=== PATIENT | female | born 1950 | race Caucasian/White ===

== ENCOUNTER 2016-12-26 05:03 | Inpatient (IN) | payer OTHER ==
--- NOTE | 2016-12-01 11:10 | HISTORY & PHYSICAL EXAMINATION ---
DATE OF ADMISSION: 12/26/2016 PROCEDURE: Left knee replacement. HISTORY OF PRESENT ILLNESS: Shania is a pleasant 66-year-old female who presents for preoperative evaluation prior to her left knee replacement. She has been having pain in this knee for several years now, which has gradually worsened. It has now gotten to the point that it is affecting her daily activities including walking up and down steps. She had a previous left knee arthroscopy, partial meniscectomy in July [address] Trujillo, has had previous cortisone injections as well as taking oral anti-inflammatories without relief. She has tried a course of physical therapy as well. At this point in time, has failed conservative measures and would like to proceed with the left knee replacement. PAST MEDICAL HISTORY: 1. Hypertension. 2. History of atrial flutter. 3. GERD. ALLERGIES: No known drug allergies. CURRENT MEDICATIONS: 1. Klor-Con 20 mEq daily. 2. Losartan/hydrochlorothiazide 100/25 mg daily. 3. Pantoprazole 40 mg daily. 4. Bisoprolol daily. PAST SURGICAL HISTORY: 1. Left knee arthroscopy. 2. Hysterectomy. 3. Appendectomy. 4. Bilateral carpal tunnel surgery. FAMILY HISTORY: Noncontributory. SOCIAL HISTORY: The patient is retired and lives in a 1-story home with her mother. Denies a history of smoking or tobacco use. No alcohol consumption. REVIEW OF SYSTEMS: Otherwise negative. Please see HPI for pertinent positives. PHYSICAL EXAMINATION: GENERAL: Dora 66-year-old female in no acute distress, alert and oriented x3. She is 5 feet tall, weighs 200 pounds. VITAL SIGNS: Blood pressure is 142/78, pulse 76, O2 sat 98%. HEENT: Normocephalic, atraumatic. CARDIAC: Regular rate and rhythm. No murmurs, rubs or gallops appreciated. Resting pulse 76 beats per minute. LUNGS: Clear to auscultation without rales or wheeze bilaterally. ABDOMEN: Soft, nontender. Bowel sounds present. EXTREMITIES: Left lower extremity is neurovascularly intact. Calves are soft and nontender. DP pulse +2. Overall has varus alignment. There is no erythema or warmth. Has mild effusion. Positive crepitation with motion, range of motion is 0/5/115. IMAGING: Reviewed of the left knee shows findings consistent with degenerative joint disease including joint space narrowing, subchondral sclerosis, and peripheral osteophytes noted. IMPRESSION: 1. Left knee degenerative joint disease. 2. Hypertension. 3. Gastroesophageal reflux disease. 4. History of atrial flutter. PLAN: Further care discussed with patient. At this point in time, has failed conservative measures and would like to proceed with a left knee replacement. We will place on aspirin 81 mg p.o. b.i.d. for a month postop and would like to be discharged home with home health physical therapy.
[2016-12-01 11:43] VITALS: BMI 37.0
--- NOTE | 2016-12-01 12:23 | PAT Medication Instructions ---
Service Date Dec 01, 2016. Current Home Medication List Acetaminophen (Tylenol 8 Hour Arthritis), 1,300 MG PO HS Ascorbic Acid (Vitamin C), 1,000 MG PO QPM Aspirin (Aspirin Ec), 81 MG PO QAM Cyanocobalamin (Vitamin B12 500MCG), 1,000 MCG PO QPM Ferrous Gluconate (Iron), 27 MG PO QAM Fish Oil (Byron-3), 1 CAP PO BID Pjodhxohzwn-Ksgpgmxecfc-Qk Cho (Glucosamine Chondroitin &), 1 TAB PO QPM Losartan Potassium & Hydrochlo (Hyzaar), 1 TAB PO QAM Multivitamin (Multivitamin), 1 TAB PO QAM Pantoprazole (Protonix), 40 MG PO NOON Potassium Ext Rel (Klor-Con), 20 MEQ PO QAM Vitamin E (Alph-E), 400 UNITS PO QPM [Bisoprolol], 2.5 MG PO QAM [Calcium], 600 MG PO QPM [Zinc], 50 MG PO QPM Medication Instructions For Your Scheduled Surgery - Hold the following medications 2 weeks prior to surgery: Vitamin E (Alph-E), 400 UNITS PO QPM Fish Oil (Byron-3), 1 CAP PO BID Hqfgamchhng-Azwxcijmexk-Sb Cho (Glucosamine Chondroitin &), 1 TAB PO QPM - Hold the following medications the morning of surgery: Ferrous Gluconate (Iron), 27 MG PO QAM Losartan Potassium & Hydrochlo (Hyzaar), 1 TAB PO QAM Multivitamin (Multivitamin), 1 TAB PO QAM Potassium Ext Rel (Klor-Con), 20 MEQ PO QAM - Take the following medications the morning of surgery with a sip of water OTHERWISE NOTHING TO EAT OR DRINK AFTER MIDNIGHT: [Bisoprolol], 2.5 MG PO QAM Aspirin (Aspirin Ec), 81 MG PO QAM Pantoprazole (Protonix), 40 MG PO NOON - Take the following medications as scheduled the night before surgery: Cyanocobalamin (Vitamin B12 500MCG), 1,000 MCG PO QPM Acetaminophen (Tylenol 8 Hour Arthritis), 1,300 MG PO HS [Calcium], 600 MG PO QPM [Zinc], 50 MG PO QPM Ascorbic Acid (Vitamin C), 1,000 MG PO QPM If you have any questions please call us at [phone] or [phone] or [phone]
[2016-12-01 12:55] LABS: BASO % 0.3 %; BASO ABS # 0.02 K/uL (0-0.2); COMPLETE YES; EOS % 1.8 %; HEMATOCRIT 38.5 % (37-47); IG% 0.2 %; LYMPH % 32.3 %; LYMPH ABS # 1.94 K/uL (1.2-3.4); MEAN CELL VOLUME 89.3 fL (80-100); MEAN CORPUSCULAR HEMOGLOBIN 31.8 pg (25-34); MEAN CORPUSCULAR HGB CONC 35.6 g/dl (32-36); MEAN PLATELET VOLUME 9.8 fL (7.4-10.4); MONO % 9.7 %; NEUT % 55.7 %; PLATELET COUNT 282 K/uL (130-400); RED BLOOD COUNT 4.31 M/uL (4.2-5.4); WHITE BLOOD COUNT 6.01 K/uL (4.8-10.8)
[2016-12-01 13:08] LABS: URINE APPEARANCE CLEAR (CLEAR); URINE BILIRUBIN NEG (NEG); URINE COLOR YELLOW; URINE EPITHELIAL CELL AUTO >30 /lpf (0-5); URINE NITRITE NEG (NEG); URINE PH 5.5 (4.5-7.5); UROBILINOGEN NEG (NEG)
[2016-12-01 13:09] LABS: MANUAL MICROSCOPIC REQUIRED? NO; REVIEW REQ? NO
[2016-12-01 13:13] LABS: PARTIAL THROMBOPLASTIN RATIO 0.9; PROTHROMBIN TIME (PATIENT) 10.4 SECONDS (9.0-12.0)
--- NOTE | 2016-12-01 13:14 | DIAGNOSTIC IMAGING REPORT ---
CHEST PREADMISSION(PA/LAT) CLINICAL HISTORY: Preoperative evaluation. COMPARISON STUDY: No previous studies for comparison. FINDINGS: Lung volumes are normal. There is no pneumothorax or pleural effusion. Cardiac size is normal. Mediastinal contours are normal. There is no evidence of pulmonary edema. No airspace opacities are identified. IMPRESSION: No acute cardiopulmonary findings. Electronically signed by: Ubaldo Silva M.D. 12/01/2016 1:12 PM Dictated Date/Time: 12/01/2016 1:12 PM
[2016-12-01 13:18] LABS: ESTIMATED AVERAGE GLUCOSE 114 mg/dl; HA1C FLAG Normal (Normal)
[2016-12-01 14:25] LABS: BUN/CREATININE RATIO 27.1 (10-20); CALCIUM 9.1 mg/dl (8.5-10.1); CREATININE 0.79 mg/dl (0.60-1.20); POTASSIUM 3.4 mmol/L (3.5-5.1)
[2016-12-26] VITALS (9 sets, daily range): BP systolic 105–166; BP diastolic 62–95; PULSE 74–83; TEMP 36.4–37.4; O2SAT 91–97; Ht 157.5 cm; Wt 92.3 kg
[~2016-12-26] VITALS: Ht 157.5 cm; Wt 92.3 kg
[~2016-12-26 05:03] MED LIST: ACET650T97 PO; ASCO10003 PO; ASPI81TA28 PO; BISOPROLOL PO; CALC-51 PO; CYAN500T13 PO; FERR27TA5 PO; GLUCTAB32 PO; LOSA100T2 PO; MULT-506 PO; OMEG10007 PO; PANT40TA PO; POTA20TA16 PO; VITA400C28 PO; ZINC PO
[2016-12-26] MEDS ORDERED: CeleBREX 200 MG CAP PO SCH (06:00)
[2016-12-26] MEDS ORDERED: ROPIVACAINE 5MG/ML 30 ML 150 MG, BUPIVACAINE/EPINEPHR 0.5% MPF 30 ML, KETOROLAC TROMETH... INFIL SCH ×7 (06:00)
[2016-12-26] MEDS ORDERED: LACTATED RINGER'S 1000ML 1,000 ML IV SCH (06:00)
[2016-12-26] MEDS ORDERED: CEFAZOLIN 2000 MG/60 ML D5W 60 ML IV SCH (06:00)
[2016-12-26] MEDS ORDERED: DEXAMETHASONE 4 MG TAB PO SCH (06:00)
[2016-12-26] MEDS ORDERED: METOCLOPRAMIDE HCL 10 MG TAB PO SCH (06:00)
[2016-12-26] MEDS ORDERED: GABAPENTIN 300 MG CAP PO SCH (06:00)
[2016-12-26] MEDS ORDERED: FAMOTIDINE 20 MG TAB PO SCH (06:00)
[2016-12-26] MEDS ORDERED: ACETAMINOPHEN 500 MG TAB PO SCH (06:00)
[2016-12-26] MEDS ORDERED: LACTATED RINGER'S 1000ML IV SCH (06:00)
[2016-12-26] MEDS ORDERED: LIDOCAINE HCL 2% 2 ML VIAL (20MG/ML) ONE (06:29)
[2016-12-26] MEDS ORDERED: PROPOFOL IV EMULSION 10 MG/ML 20 ML VIAL IV ONE (06:29)
[2016-12-26] MEDS ORDERED: MIDAZOLAM HCL 1 MG/ML 2ML VIAL ONE (06:29)
[2016-12-26] MEDS ORDERED: FENTANYL CITRATE INJ 50 MCG/1 ML 2 ML VIAL ONE (06:29)
[2016-12-26] MEDS ORDERED: ONDANSETRON INJ 2 MG/ML 2 ML VIAL ONE (06:29)
[2016-12-26] MEDS: TRANEXAMIC ACID INJ 1,000 MG in SODIUM CHLORIDE 0.9% 100ML 100 ML IV SCH ×2 (06:30→07:03)
[2016-12-26] MEDS ORDERED: BUPIVACAINE 0.5 % 5 MG/1 ML PF 10ML VIAL ONE (06:32)
[2016-12-26] MEDS ORDERED: DEXAMETHASONE SOD INJ 4 MG/ML VIAL ONE (06:33)
[2016-12-26] MEDS ORDERED: BUPIVACAINE/EPINEPHRINE 0.25% 1:200,000 30 ML VIAL ONE (06:33)
[2016-12-26] MEDS ORDERED: POVIDONE-IODINE OP SOLN 30 ML BTL ONE (07:01)
[2016-12-26] MEDS ORDERED: BACITRACIN 50000 UNIT VIAL ONE (07:01)
[2016-12-26] MEDS ORDERED: ORTHO JOINT ANESTHETIC ONE (07:01)
--- NOTE | 2016-12-26 07:14 | History & Physical Bridge Note ---
H&P Re-Evaluation Bridge Note: I have examined the patient, reviewed the History & Physical and in the interval since the performance of the History & Physical I have noted the following changes of clinical significance: No changes noted
[2016-12-26] MEDS ORDERED: ATROPINE SULFATE 0.1 MG/ML 5ML SYR IV PRN (07:30)
[2016-12-26] MEDS ORDERED: ONDANSETRON INJ 2 MG/ML 2 ML VIAL IV PRN ×2 (07:30→09:15)
[2016-12-26] MEDS ORDERED: EpHEDrine SULFATE INJ 50 MG/ML AMP IV PRN (07:30)
[2016-12-26] MEDS ORDERED: FENTANYL CITRATE INJ 50 MCG/1 ML 2 ML VIAL IV PRN (07:30)
[2016-12-26] MEDS ORDERED: PHENYLEPHRINE 100MCG/ML 5ML SYR ONE (07:33)
--- NOTE | 2016-12-26 08:24 | [facility] Post Operative Brief Note ---
Immediate Operative Summary Operative Date Dec 26, 2016. Pre-Operative Diagnosis left knee degenerative joint disease Post-Operative Diagnosis left knee degenerative joint disease Procedure(s) Performed left Total Knee Arthoplasty Surgeon Dr. Crespo Surveyor Hydrographic Surgeon(s) Rajinder Franks PA-C Estimated Blood Loss 10cc Findings severe djd lt knee Specimens A: left knee bone and tissue Complication(s) None Disposition Surgical ICU
--- NOTE | 2016-12-26 08:43 | OPERATIVE REPORT ---
DATE OF OPERATION: 12/26/2016 PREOPERATIVE DIAGNOSIS: Severe end-stage tricompartmental degenerative joint disease, left knee. POSTOPERATIVE DIAGNOSIS: Same. PROCEDURE: Left total knee arthroplasty utilizing Journey II patient matched total knee arthroplasty with patient matched block, size 4 femur, 3 tibia, 10 poly, and 29 oval patella. SURGEON: Dr. Farhan Crespo. HOME ECONOMICS EXTENSION WORKER: NAGA Simeon, who was necessary for prepping, draping, retraction, wound closure of deep fascia, subcutaneous and skin and was necessary for the case. ESTIMATED TOURNIQUET TIME: 40 minutes. COMPLICATIONS: None. ESTIMATED BLOOD LOSS: 10 mL. HISTORY: The patient presents as a 66-year-old white female with complaints of severe end-stage DJD about her left knee. She has been nonresponsive to conservative therapy including physical therapy, anti-inflammatories, relative rest, activity modification, corticosteroid injections, and viscosupplementations. After thorough discussion regarding risks and complications, the patient elects to proceed forward with total knee arthroplasty. DESCRIPTION OF PROCEDURE: The patient was properly prepped and draped in supine position for total knee arthroplasty after identifying the appropriate surgical site. An anterior midline incision was made through the subcutaneous tissues down to the region of the extensor mechanism. A medial parapatellar incision was subsequently made. Meticulous hemostasis was obtained and performed at all times. The patella having been subluxed lateralward, medial and lateral meniscal remnants were excised. The patellar cut was then initially made and was sized to the appropriate size. After subluxing the tibia forward the appropriate meniscal fragments having been removed the distal femur was then cut first utilizing a Turner and Nephew block. The distal femoral cuts and chamfer cuts were all made under direct visualization and the proximal tibial osteotomy cut was also made utilizing Turner and Nephew blocks and checked with an extramedullary guide. The appropriate trial components on the femur and tibia were placed. Appropriate trial spacers were used to check flexion and extension gaps. With flexion and extension gaps being equal, the components were then subsequently after thorough irrigation and debridement lavage components were then subsequently cemented in the following order: femur, tibia and patella. Exparel was used for intraoperative anesthesia, the medial parapatellar incision was closed utilizing #1 Vicryl, subQ was closed with 2-0 Vicryl, skin was closed with skin clips. A sterile compression dressing was placed. The patient was taken to recovery room in stable condition. Due to the complex nature of the procedure, the entire surgery was performed with the operational assistance of NAGA Simeon. The operator/assistant foreman, under direct supervision, was involved in the actual performance of all aspects of the surgical procedure including hemostasis, tissue retraction and incision, instrument management, patient positioning, and wound closure. I attest to the content of the Intraoperative Record and any orders documented therein. Any exceptio ns are noted below.
[2016-12-26] MEDS ORDERED: MAGNESIUM HYDROXIDE SUSP 30 ML UDC PO PRN (09:15)
[2016-12-26] MEDS ORDERED: BISACODYL 10 MG SUPP PR PRN (09:15)
[2016-12-26] MEDS ORDERED: ALUMINUM/MAGNESIUM/SIMETH (MAALOX MAX) 30 ML UDC PO PRN (09:15)
[2016-12-26] MEDS ORDERED: KETOROLAC TROMETHAMINE 30 MG/ML VIAL IV. PRN (09:15)
[2016-12-26] MEDS ORDERED: SOD PHOSPHATE/SOD BIPHOSPHATE ENEMA 132 ML BTL PR PRN (09:15)
[2016-12-26] MEDS ORDERED: MoRPHine SULFATE 2 MG/ML CARP IV PRN (09:15)
[2016-12-26] MEDS ORDERED: MoRPHine SULFATE 4 MG/ML 1 ML CARP\\VIAL IV PRN (09:30)
[2016-12-26] MEDS ORDERED: MoRPHine SULFATE 10 MG/ML CARP/VIAL IV PRN (09:30)
--- NOTE | 2016-12-26 09:52 | Anesthesiology Progress Note ---
Anesthesia Post Op Note Date & Time Dec 26, 2016 at 09:52 Vital Signs Pain Intensity: 0 Vital Signs Past 12 Hours Date Time Temp Pulse Resp B/P Pulse Ox O2 Delivery O2 Flow Rate FiO2 12/26/16 09:40 36.3 85 17 139/73 96 Nasal Cannula 3 12/26/16 09:30 85 16 141/73 97 Nasal Cannula 3 12/26/16 09:20 87 16 139/68 98 Nasal Cannula 3 12/26/16 09:10 90 16 123/56 98 Nasal Cannula 3 12/26/16 09:00 36.4 91 16 131/61 98 Mask 10 12/26/16 05:55 36.7 83 18 166/95 95 Room Air Notes Mental Status: alert / awake / arousable, participated in evaluation Pt Amnestic to Procedure: Yes Nausea / Vomiting: adequately controlled Pain: adequately controlled Airway Patency, RR, SpO2: stable & adequate BP & HR: stable & adequate Hydration State: stable & adequate Neuraxial Anesthesia: was administered, sensory block is resolving Anesthetic Complications: no major complications apparent
--- NOTE | 2016-12-26 10:08 | DIAGNOSTIC IMAGING REPORT ---
LEFT KNEE 1 OR 2 VIEWS ROUTINE CLINICAL HISTORY: Postoperative evaluation. COMPARISON: None FINDINGS: Alignment of the total left knee arthroplasty is anatomic. There is no fracture or unexpected radiopaque foreign body. Drains are in place. IMPRESSION: Expected findings following total left knee arthroplasty. Electronically signed by: Ubaldo Silva M.D. 12/26/2016 10:07 AM Dictated Date/Time: 12/26/2016 10:07 AM
[2016-12-26] MEDS: D5W AND 1/2NSS + 20MEQ KCL 1,000 ML IV SCH ×2 (11:39→21:05)
[2016-12-26] MEDS: ACETAMINOPHEN 500 MG TAB PO SCH ×2 (13:26→21:09)
[2016-12-26] MEDS: CEFAZOLIN IV 2,000 MG in DEXTROSE 5% 50ML 50 ML IV SCH ×2 (15:34→23:44)
[2016-12-26] MEDS: OXYCODONE HCL 10 MG TABCR (OXYCONTIN) PO SCH (21:08)
[2016-12-26] MEDS: DOCUSATE SODIUM 100 MG CAP PO SCH (21:09)
[2016-12-26] MEDS: CALCIUM 600MG + VIT D 400 IU TAB PO SCH (21:09)
[2016-12-26] MEDS: ZINC SULFATE 220 MG CAP PO SCH (21:09)
[2016-12-26] MEDS: CYANOCOBALAMIN 500 MCG TAB (VIT B-12) PO SCH (21:10)
[2016-12-26] MEDS: ASCORBIC ACID 500 MG TAB PO SCH (21:10)
[2016-12-26] MEDS: SENNA 8.6 MG TAB PO SCH (21:10)
[2016-12-26] MEDS: ASPIRIN 81 MG ECTAB PO SCH (21:10)
[2016-12-27] VITALS (7 sets, daily range): BP systolic 125–147; BP diastolic 64–82; PULSE 66–82; TEMP 36.4–36.7; O2SAT 93–98
[2016-12-27] MEDS: ACETAMINOPHEN 500 MG TAB PO SCH ×3 (05:57→21:42)
[2016-12-27 06:38] LABS: HEMATOCRIT 33.6 % (37-47); MEAN CELL VOLUME 88.2 fL (80-100); MEAN CORPUSCULAR HEMOGLOBIN 31.5 pg (25-34); MEAN CORPUSCULAR HGB CONC 35.7 g/dl (32-36); MEAN PLATELET VOLUME 9.7 fL (7.4-10.4); PLATELET COUNT 244 K/uL (130-400); RED BLOOD COUNT 3.81 M/uL (4.2-5.4); WHITE BLOOD COUNT 13.52 K/uL (4.8-10.8)
[2016-12-27 06:48] LABS: PROTHROMBIN TIME (PATIENT) 10.9 SECONDS (9.0-12.0)
[2016-12-27 07:11] LABS: BUN/CREATININE RATIO 21.8 (10-20); CALCIUM 8.6 mg/dl (8.5-10.1); CREATININE 0.8 mg/dl (0.60-1.20); POTASSIUM 3.7 mmol/L (3.5-5.1)
[2016-12-27] MEDS: D5W AND 1/2NSS + 20MEQ KCL 1,000 ML IV SCH (07:15)
--- NOTE | 2016-12-27 07:24 | Orthopedic Progress Note ---
Orthopedic Progress Note Date of Service Dec 27, 2016. Subjective Post OP Day: 1 (Left TKA) Reports: feeling well, pain controlled w PO medications, Denies: SOB, calf pain , chest pain, complaints, light headedness, nausea / vomiting Objective calves soft nontender, N/V intact, capillary refill less than 2 sec., dressing C /D/I, A&O x3, toes mobile, hemovac drainage (135cc/8 hours) Date Time Temp Pulse Resp B/P Pulse Ox O2 Delivery O2 Flow Rate FiO2 12/27/16 03:29 36.5 82 18 132/77 93 Room Air 12/26/16 23:30 36.6 74 18 154/88 94 Room Air 12/26/16 19:25 Room Air 12/26/16 19:11 36.7 74 17 121/72 92 Room Air 12/26/16 16:22 36.4 75 17 128/72 91 Room Air 12/26/16 13:25 36.8 79 16 110/62 97 Nasal Cannula 2.0 12/26/16 12:25 36.5 82 16 105/66 96 Nasal Cannula 2.0 12/26/16 11:25 37.4 79 16 133/81 95 Nasal Cannula 2.0 12/26/16 10:55 36.5 76 18 125/74 96 Nasal Cannula 2.0 12/26/16 10:25 Nasal Cannula 3.0 12/26/16 10:25 Nasal Cannula 3.0 12/26/16 10:25 36.6 78 14 124/74 97 Nasal Cannula 3.0 12/26/16 10:05 36.3 86 17 137/72 96 Nasal Cannula 3 12/26/16 09:50 36.3 84 17 141/78 96 Nasal Cannula 3 12/26/16 09:40 36.3 85 17 139/73 96 Nasal Cannula 3 12/26/16 09:30 85 16 141/73 97 Nasal Cannula 3 12/26/16 09:20 87 16 139/68 98 Nasal Cannula 3 12/26/16 09:10 90 16 123/56 98 Nasal Cannula 3 12/26/16 09:00 36.4 91 16 131/61 98 Mask 10 Laboratory Results 24 Hours: Test 12/27/16 06:07 Hematocrit 33.6 % Hemoglobin 12.0 g/dL Prothromb Time International Ratio 1.0 Prothrombin Time 10.9 SECONDS Assessment & Plan Assessment: POD #1 s/p Left TKA -PT/OT -dvt proph with SAIRA/SCD/ASA -plan for d/c home with OPPT @ [facility] when stable, possible later today if does well with PT 1. Hypertension. 2. History of atrial flutter. 3. GERD. Discharge Planning Discharge Planning: home with oppt DVT Prophylaxis: TEDs, SCDs, ASA Therapy: Physical Therapy
--- NOTE | 2016-12-27 07:27 | Anesthesiology Progress Note ---
Anesthesia Post Op Note Date & Time Dec 27, 2016 at 07:27 Vital Signs Pain Intensity: 0.0 Vital Signs Past 12 Hours Date Time Temp Pulse Resp B/P Pulse Ox O2 Delivery O2 Flow Rate FiO2 12/27/16 03:29 36.5 82 18 132/77 93 Room Air 12/26/16 23:30 36.6 74 18 154/88 94 Room Air Notes Mental Status: alert / awake / arousable, participated in evaluation Pt Amnestic to Procedure: Yes Nausea / Vomiting: adequately controlled Pain: adequately controlled Airway Patency, RR, SpO2: stable & adequate BP & HR: stable & adequate Hydration State: stable & adequate Neuraxial Anesthesia: sensory block resolved Anesthetic Complications: no major complications apparent
[2016-12-27] MEDS: ASPIRIN 81 MG ECTAB PO SCH ×2 (08:54→21:43)
[2016-12-27] MEDS: BISOPROLOL FUMARATE 5 MG TAB PO SCH (08:55)
[2016-12-27] MEDS: DOCUSATE SODIUM 100 MG CAP PO SCH ×2 (08:56→21:44)
[2016-12-27] MEDS: POTASSIUM CHLORIDE 20 MEQ TABCR PO SCH (08:56)
[2016-12-27] MEDS: MULTIVITAMIN TAB PO SCH (08:57)
[2016-12-27] MEDS: LOSARTAN/HCTZ 50-12.5 EA TAB PO SCH (08:57)
[2016-12-27] MEDS: OXYCODONE HCL 10 MG TABCR (OXYCONTIN) PO SCH ×2 (08:58→21:36)
[2016-12-27] MEDS: OXYCODONE HCL IR 5 MG TAB (IMMEDIATE RELEASE) PO PRN ×2 (09:00→23:41)
[2016-12-27] MEDS: FERROUS GLUCONATE 324 MG TAB PO SCH (09:07)
[2016-12-27] MEDS: PANTOprazole SOD 40 MG TAB PO SCH (09:07)
--- NOTE | 2016-12-27 12:14 | Discharge Instructions ---
Discharge Instructions Admission Reason for Admission: Left Knee Osteoarthritis Discharge Discharge Diagnosis / Problem: Left Total Knee Replacement Discharge Goals Goal(s): Decrease discomfort, Improve function, Increase independence Activity Recommendations Activity Limitations: as noted below Weightbearing Status: Left weightbearing (as tolerated) . Instructions / Follow-Up Instructions / Follow-Up ACTIVITY RECOMMENDATIONS: SELF CARE INSTRUCTIONS AFTER TOTAL KNEE REPLACEMENT A. You may need to continue a physical therapy program after discharge from the hospital. There are several options available to you. Your doctor will assist you in selecting the best one for you. 1. An out-patient facility 2 to 3 times a week for therapy or home therapy. 2. Continue working on all exercises taught to you in the hospital. Your goals should be to increase bending of your knee to 90 degrees and beyond and to fully straighten your knee. B. You may progress at your own pace from walking with a walker or crutches to a cane; then to no assistive devices. C. Make walking a part of your daily routine. Be up as much as comfortable with rest periods throughout the day. Rest with leg elevation is very important. Use the ice wrap frequently for the first 3-4 weeks. D. There are no restrictions on activities. You may ride in a car, shop, participate in arterial embalmer and all social activities. E. Wear the long elastic stockings (SAIRA hose) 20 hours a day for 2 weeks after surgery. They can be removed several times a day for laundering and for a bath. F. You may shower, no tub baths until cleared by your doctor. SPECIAL CARE INSTRUCTIONS: VERY IMPORTANT TO READ AND REVIEW A. There are a few signs you need to watch for after you are home. Call [facility] if you notice any of the followin. Increased severe knee pain. Some pain is expected especially when you exercise. 2. Increased swelling in your leg or knee; pain or swelling of the calf muscle in either lower leg. 3. Any fluid drainage from the incision. 4. Shortness of breath or chest pain. B. Please call [facility] at if you have any concerns or questions about your operation or recovery. The doctor or his nurse will return your call promptly. C. You must take antibiotics before dental work, bladder, bowel or other surgery. Your doctor will provide you with a permanent care to carry describing this precaution. IMPORTANT: * REMEMBER TO TAKE ASPIRIN, 81 MG, TWICE DAILY FOR 4 WEEKS UNLESS OTHERWISE DIRECTED. THIS IS YOUR BLOOD THINNER. * HIGH RISK PATIENTS MAY BE PRESCRIBED A STRONGER BLOOD THINNER. THIS WILL BE PROVIDED AT DISCHARGE. * CALL IF INCREASED PAIN, REDNESS, DRAINAGE OR FEVER GREATER THAT 101. * WEAR SAIRA HOSE 20 HOURS PER DAY FOR 2 WEEKS. * DERMABOND Prineo- This is a mesh tape dressing that is covered with glue. It should remain in place until the incision is properly healed, usually 10-14 days. This dressing is designed to naturally slough off. You may trim the excess mesh tape as it peels off. Incision may be briefly wet in a shower. Dry immediately by blotting with a clean, dry towel. Do not bath or swim until instructed by your doctor. Do not scratch, rub, or pick at the dressing. Do not apply any topical ointments or lotions until dressing is completely removed and/or instructed by your doctor. There may be a small piece of suture material at one end of your incision. Do not pull or trim this. If it is bothersome or catching on clothing, you may cover it with a band-aid. FOLLOW UP VISIT: If appointment is not already scheduled: Please call [facility] to make a follow-up appointment for 2 weeks after your surgery at . Current Hospital Diet Patient's current hospital diet: Regular Diet Discharge Diet Recommended Diet: Regular Diet Procedures Procedures Performed: left Total Knee Arthoplasty Pending Studies Studies pending at discharge: no Laboratory Results Hemoglobin A1c Test 12/01/16 12:31 Range/Units Estimated Average Glucose 114 mg/dl Hemoglobin A1c 5.6 4.5-5.6 % Medical Emergencies . Who to Call and When: Medical Emergencies: If at any time you feel your situation is an emergency, please call 911 immediately. . Non-Emergent Contact Non-Emergency issues call your: Primary Care Provider, Surgeon . "Provider Documentation" section prepared by Rajinder Franks. VTE Core Measure Inpt VTE Proph given/why not?: Other Anticoagulation (ASA 81mg po bid x 1 month ), T.EMesfin Lange, SCD's [place] Drug Monitoring Program Search Results: patient reviewed within database, no issues identified
[2016-12-27] MEDS: ZINC SULFATE 220 MG CAP PO SCH (21:37)
[2016-12-27] MEDS: CeleBREX 200 MG CAP PO SCH (21:39)
[2016-12-27] MEDS: SENNA 8.6 MG TAB PO SCH (21:40)
[2016-12-27] MEDS: ASCORBIC ACID 500 MG TAB PO SCH (21:41)
[2016-12-27] MEDS: CYANOCOBALAMIN 500 MCG TAB (VIT B-12) PO SCH (21:43)
[2016-12-27] MEDS: CALCIUM 600MG + VIT D 400 IU TAB PO SCH (21:44)
[2016-12-28] MEDS: ACETAMINOPHEN 500 MG TAB PO SCH (05:36)
--- NOTE | 2016-12-28 06:57 | Orthopedic Progress Note ---
Orthopedic Progress Note Date of Service Dec 28, 2016. Subjective Post OP Day: 2 Reports: feeling well, pain controlled w PO medications, Denies: SOB, calf pain , chest pain, complaints, light headedness, nausea / vomiting Objective calves soft nontender, N/V intact, capillary refill less than 2 sec., incision C /D/I, A&O x3, toes mobile Date Time Temp Pulse Resp B/P Pulse Ox O2 Delivery O2 Flow Rate FiO2 12/27/16 23:30 36.7 74 16 147/68 94 Room Air 12/27/16 19:40 Room Air 12/27/16 15:07 36.7 68 17 130/76 93 Room Air 12/27/16 11:55 36.4 66 14 133/82 97 Room Air 12/27/16 11:03 67 94 12/27/16 10:07 98 Room Air 12/27/16 08:06 36.5 73 16 140/64 94 Room Air 12/27/16 07:20 Room Air Assessment & Plan Assessment: POD #2 s/p Left TKA -PT/OT -dvt proph with SAIRA/SCD/ASA -plan for d/c home with OPPT @ [facility] when stable, possible later today if does well with PT 1. Hypertension. 2. History of atrial flutter. 3. GERD. Discharge Planning Discharge Planning: home with oppt DVT Prophylaxis: TEDs, SCDs, ASA Therapy: Physical Therapy
[2016-12-28] MEDS ORDERED: ACET-1138 PO (06:59)
[2016-12-28] MEDS ORDERED: CLB200 PO (06:59)
[2016-12-28] MEDS ORDERED: CLC100 PO (06:59)
[2016-12-28] MEDS ORDERED: OXYSR10 PO (06:59)
[2016-12-28] MEDS ORDERED: ASPEC81 PO (06:59)
[2016-12-28] MEDS ORDERED: RXC5 PO (06:59)
--- NOTE | 2016-12-28 07:06 | Discharge Summary ---
Orthopedic Discharge Summary Admission Date/Reason Dec 26, 2016 at 06:15 Left Knee Osteoarthritis. Discharge Date/Disposition Dec 28, 2016 Home Diagnosis Principal Diagnosis: Left Knee DJD Secondary Diagnoses/Problems: 1. Hypertension. 2. History of atrial flutter. 3. GERD. Procedure(s) Performed Left total knee arthroplasty utilizing [facility] II patient matched total knee arthroplasty with patient matched block, size 4 femur, 3 tibia, 10 poly, and 29 oval patella. Consultations NONE Medication Reconciliation New Medications: Acetaminophen (Tylenol Extra Strength) 500 Mg Tab 1000 MG PO Q8H, #126 TAB Aspirin (Aspirin EC Low Dose) 81 Mg Ectab 81 MG PO BID for 30 Days Celecoxib (Celebrex) 200 Mg Cap 200 MG PO BID, #60 CAP Docusate Sodium (Docusate Sodium) 100 Mg Cap 100 MG PO BID for 15 Days, #30 CAP Oxycodone HCl (Oxycontin) 10 Mg Tabcr 10 MG PO Q12, #20 Oxycodone HCl (Oxycodone HCl) 5 Mg Tab 5-10 MG PO Q4H PRN for Pain, #60 TAB Continued Medications: Ferrous Gluconate (Iron) 27 Mg Tab 27 MG PO QAM Fish Oil ([place]-3) 1 Ea Cap 1 CAP PO BID, CAP Losartan Potassium & Hydrochlo (Hyzaar) 1 Tab Tab 1 TAB PO QAM for 90 Days, #90 TAB 3 Refills 100/25 MG Pantoprazole (Protonix) 40 Mg Tab 40 MG PO NOON, #30 TAB Potassium Ext Rel (Klor-Con) 20 Meq Tabcr 20 MEQ PO QAM, TAB [Bisoprolol] () 2.5 MG PO QAM [Calcium] () 600 MG PO QPM [Zinc] () 50 MG PO QPM Discontinued Medications: Acetaminophen (Tylenol 8 Hour Arthritis) 650 Mg Tab 1300 MG PO HS Ascorbic Acid (Vitamin C) 1,000 Mg Tab 1000 MG PO QPM Aspirin (Aspirin Ec) 81 Mg Tab 81 MG PO QAM Cyanocobalamin (Vitamin B12 500MCG) 500 Mcg Tab 1000 MCG PO QPM, TAB Bkysrxhqfle-Lrimjigxkdy-Wm Cho (Glucosamine Chondroitin &) 1 Tab Tab 1 TAB PO QPM Multivitamin (Multivitamin) Tab 1 TAB PO QAM, TAB Vitamin E (Alph-E) 400 Unit Cap 400 UNITS PO QPM Admission Physical Exam As per Admitting History & Physical. Hospital Course Patient was a same day admission after undergoing a successful left TKA. she tolerated the procedure well. Post-operatively, her activity was progressed and well tolerated. Please refer to daily progress notes and PT notes for complete details. After exam on 12/28/16, patient felt to be stable for discharge home with OPPT. Patient will f/u in the office in 2 weeks for further evaluation including x-rays and incision check, sooner if having any issues or concerns. Below are pertinent labs/studies during their hospital stay: Last Vital Signs Documentation Date Time Temp Pulse Resp B/P Pulse Ox O2 Delivery O2 Flow Rate FiO2 12/27/16 23:30 36.7 74 16 147/68 94 Room Air 12/26/16 13:25 2.0 Last Resulted CBC 12/27/16 06:07 Last Resulted BMP 12/27/16 06:07 Discharge Instructions ACTIVITY RECOMMENDATIONS: SELF CARE INSTRUCTIONS AFTER TOTAL KNEE REPLACEMENT A. You may need to continue a physical therapy program after discharge from the hospital. There are several options available to you. Your doctor will assist you in selecting the best one for you. 1. An out-patient facility 2 to 3 times a week for therapy or home therapy. 2. Continue working on all exercises taught to you in the hospital. Your goals should be to increase bending of your knee to 90 degrees and beyond and to fully straighten your knee. B. You may progress at your own pace from walking with a walker or crutches to a cane; then to no assistive devices. C. Make walking a part of your daily routine. Be up as much as comfortable with rest periods throughout the day. Rest with leg elevation is very important. Use the ice wrap frequently for the first 3-4 weeks. D. There are no restrictions on activities. You may ride in a car, shop, participate in tip scourer and all social activities. E. Wear the long elastic stockings (SAIRA hose) 20 hours a day for 2 weeks after surgery. They can be removed several times a day for laundering and for a bath. F. You may shower, no tub baths until cleared by your doctor. SPECIAL CARE INSTRUCTIONS: VERY IMPORTANT TO READ AND REVIEW A. There are a few signs you need to watch for after you are home. Call [facility] if you notice any of the followin. Increased severe knee pain. Some pain is expected especially when you exercise. 2. Increased swelling in your leg or knee; pain or swelling of the calf muscle in either lower leg. 3. Any fluid drainage from the incision. 4. Shortness of breath or chest pain. B. Please call [facility] at if you have any concerns or questions about your operation or recovery. The doctor or his nurse will return your call promptly. C. You must take antibiotics before dental work, bladder, bowel or other surgery. Your doctor will provide you with a permanent care to carry describing this precaution. IMPORTANT: * REMEMBER TO TAKE ASPIRIN, 81 MG, TWICE DAILY FOR 4 WEEKS UNLESS OTHERWISE DIRECTED. THIS IS YOUR BLOOD THINNER. * HIGH RISK PATIENTS MAY BE PRESCRIBED A STRONGER BLOOD THINNER. THIS WILL BE PROVIDED AT DISCHARGE. * CALL IF INCREASED PAIN, REDNESS, DRAINAGE OR FEVER GREATER THAT 101. * WEAR SAIRA HOSE 20 HOURS PER DAY FOR 2 WEEKS. * DERMABOND Prineo- This is a mesh tape dressing that is covered with glue. It should remain in place until the incision is properly healed, usually 10-14 days. This dressing is designed to naturally slough off. You may trim the excess mesh tape as it peels off. Incision may be briefly wet in a shower. Dry immediately by blotting with a clean, dry towel. Do not bath or swim until instructed by your doctor. Do not scratch, rub, or pick at the dressing. Do not apply any topical ointments or lotions until dressing is completely removed and/or instructed by your doctor. There may be a small piece of suture material at one end of your incision. Do not pull or trim this. If it is bothersome or catching on clothing, you may cover it with a band-aid. FOLLOW UP VISIT: If appointment is not already scheduled: Please call [facility] to make a follow-up appointment for 2 weeks after your surgery at .
[2016-12-28 07:41] VITALS: BP 148/89; PULSE 104; TEMP 36.6; O2SAT 93
[2016-12-28] MEDS: CeleBREX 200 MG CAP PO SCH (08:43)
[2016-12-28] MEDS: DOCUSATE SODIUM 100 MG CAP PO SCH (08:43)
[2016-12-28] MEDS: FERROUS GLUCONATE 324 MG TAB PO SCH (08:44)
[2016-12-28] MEDS: MULTIVITAMIN TAB PO SCH (08:44)
[2016-12-28] MEDS: ASPIRIN 81 MG ECTAB PO SCH (08:44)
[2016-12-28] MEDS: OXYCODONE HCL 10 MG TABCR (OXYCONTIN) PO SCH (08:44)
[2016-12-28] MEDS: POTASSIUM CHLORIDE 20 MEQ TABCR PO SCH (08:45)
[2016-12-28] MEDS: PANTOprazole SOD 40 MG TAB PO SCH (08:45)
[2016-12-28 08:48] VITALS: BP 140/72; PULSE 89
[2016-12-28] MEDS: LOSARTAN/HCTZ 50-12.5 EA TAB PO SCH (08:49)
[2016-12-28] MEDS: BISOPROLOL FUMARATE 5 MG TAB PO SCH (08:49)
[2016-12-28] MEDS: OXYCODONE HCL IR 5 MG TAB (IMMEDIATE RELEASE) PO PRN (08:51)
[2016-12-28 10:40] VITALS: BP 140/72; PULSE 89; TEMP 36.6; O2SAT 93
== END 2016-12-28 12:40 | disposition home or self-care (01) | DRG 470 ==
LOC: ENRESERVTM → ENRESERVDT → C.ACU 05:03 → C.3E 06:15
PROVIDERS: ADMIT Orthopaedic Surgery; ATTEND Orthopaedic Surgery
PROC: 0SRD0J9 Replacement of Left Knee Joint with Synthetic Substitute, Cemented, Open Approach (ICD-10-PCS; principal; 2016-12-26 07:15)
DX: M17.12 Unilateral primary osteoarthritis, left knee (principal); M25.462 Effusion, left knee; M21.162 Varus deformity, not elsewhere classified, left knee; I10 Essential (primary) hypertension; K21.9 Gastro-esophageal reflux disease without esophagitis; Z86.79 Personal history of other diseases of the circulatory system; E66.9 Obesity, unspecified; Z68.37 Body mass index [BMI] 37.0-37.9, adult; Z79.82 Long term (current) use of aspirin; Z79.899 Other long term (current) drug therapy